=== PATIENT | female | born 1955 | race Caucasian/White ===

== ENCOUNTER 2017-03-20 12:16 | Emergency (ER) | payer MEDICARE, MEDICAID ==
[2017-03-20] MEDS ORDERED: Sodium Chloride 0.9% 10 ML Syringe FLUSH PRN (12:36)
[2017-03-20] MEDS ORDERED: Levalbuterol HCl 1.25 MG/3 ML Neb NEB ONE (12:50)
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
--- NOTE | 2017-03-20 13:25 | CR ---
Chest: Portable view of the chest was obtained. Comparison: Previous chest x-ray of 07/09/16. Previous right mastectomy is noted. Surgical clips are seen within the right side of the chest. Scoliosis present within the spine which is felt to be mostly positional. Heart size and mediastinum are within normal limits for portable technique. Lungs are clear with no acute infiltrates. Impression: 1. Incidental findings. Nothing acute is identified on portable chest x-ray. Diagnostic code #2
[2017-03-20] MEDS ORDERED: LORazepam 2 MG/ML MDV IVPUSH ONE (13:34)
[2017-03-20] MEDS ORDERED: Acetaminophen 325 MG Tab PO ONE (13:34)
[2017-03-20] MEDS ORDERED: Ketorolac 30 MG/ML SDV IVPUSH SCH (13:45)
[2017-03-20] MEDS ORDERED: Sodium Chloride 0.9% 1,000 ML IV SCH (14:00)
[2017-03-20 16:57] VITALS: BP 112/59
== END 2017-03-20 16:50 | disposition home or self-care (01) ==
LOC: JD.ED 12:16
DX: R07.89 Other chest pain (principal); E86.0 Dehydration; E78.00 Pure hypercholesterolemia, unspecified; I11.0 Hypertensive heart disease with heart failure; I50.9 Heart failure, unspecified; K21.9 Gastro-esophageal reflux disease without esophagitis; F41.8 Other specified anxiety disorders; E03.9 Hypothyroidism, unspecified; D64.9 Anemia, unspecified; Z86.73 Personal history of transient ischemic attack (TIA), and cerebral infarction without residual deficits; Z90.710 Acquired absence of both cervix and uterus; Z90.49 Acquired absence of other specified parts of digestive tract; Z98.890 Other specified postprocedural states; Z87.891 Personal history of nicotine dependence; Z79.899 Other long term (current) drug therapy; Z79.82 Long term (current) use of aspirin; Z88.1 Allergy status to other antibiotic agents; Z88.8 Allergy status to other drugs, medicaments and biological substances; Z88.6 Allergy status to analgesic agent; Z88.7 Allergy status to serum and vaccine; Z88.5 Allergy status to narcotic agent
CPT/HCPCS: 36415; 71010; 84484; 93005; 94664; 96361; 96374; 96375; 99285; A9270; J1885; J2060; J7040; J7050; 99284

== ENCOUNTER 2022-01-26 13:13 | Inpatient (IN) | payer MEDICARE, MEDICAID ==
[2022-01-26] MEDS ORDERED: Ibuprofen 800 MG Tab PO ONE (13:42)
[2022-01-26] MEDS ORDERED: Ibuprofen 400 MG Tab ONE (13:59)
[2022-01-26] MEDS ORDERED: ClonazePAM 0.5 MG Tab PO ONE (15:07)
[2022-01-26] MEDS ORDERED: Magnesium Sulfate/Water 2 GM in Premix Bag 1 BAG IV ONE (15:48)
[2022-01-26] MEDS ORDERED: Acetaminophen 325 MG Tab PO ONE (15:53)
[2022-01-26] MEDS ORDERED: Sodium Chloride 0.9% 1,000 ML IV SCH (16:00)
[2022-01-26] MEDS ORDERED: Magnesium Citrate Solution 296 ML Bottle PO PRN (20:13)
[2022-01-26] MEDS ORDERED: Levalbuterol HCl 1.25 MG/3 ML Neb INH PRN (20:38)
[2022-01-26] MEDS: Levothyroxine 25 MCG Tab PO SCH (20:43)
[2022-01-26] MEDS ORDERED: Amantadine 100 MG Cap PO SCH (21:00)
[2022-01-26] MEDS ORDERED: QUEtiapine 25 MG Tab PO SCH ×3 (21:00)
[2022-01-26] MEDS: LORazepam 1 MG Tab PO SCH (21:02)
[2022-01-26] MEDS: Dextrose 5%-0.45% NaCl 1,000 ML IV SCH (21:03)
[2022-01-26] MEDS: Rosuvastatin 10 MG Tab PO SCH (21:03)
[2022-01-26] MEDS: Docusate Sodium 100 MG Cap PO SCH (21:03)
[2022-01-26] MEDS: Gabapentin 600 MG Tab PO SCH (21:04)
[2022-01-26] MEDS: Ibuprofen 400 MG Tab PO SCH (21:05)
[2022-01-26] MEDS: Amantadine 100 MG Cap PO SCH (21:08)
[2022-01-26] MEDS: Acetaminophen 325 MG Tab PO SCH (21:16)
[2022-01-27] MEDS: Dextrose 5%-0.45% NaCl 1,000 ML IV SCH (05:10)
[2022-01-27] MEDS: Levothyroxine 25 MCG Tab PO SCH (06:50)
[2022-01-27] MEDS ORDERED: Omeprazole 20 MG Cap.CR PO SCH (07:00)
[2022-01-27] MEDS: LORazepam 1 MG Tab PO SCH ×4 (08:39→21:47)
[2022-01-27] MEDS: Furosemide 40 MG Tab PO SCH (08:39)
[2022-01-27] MEDS: Losartan 25 MG Tab PO SCH (08:40)
[2022-01-27] MEDS: Gabapentin 600 MG Tab PO SCH ×4 (08:40→21:46)
[2022-01-27] MEDS: Docusate Sodium 100 MG Cap PO SCH ×2 (08:40→21:43)
[2022-01-27] MEDS: Omeprazole 20 MG Cap.CR PO SCH ×2 (08:40→21:47)
[2022-01-27] MEDS: Aspirin 81 MG Tab.EC PO SCH (08:40)
[2022-01-27] MEDS: Amantadine 100 MG Cap PO SCH ×2 (08:40→21:45)
[2022-01-27] MEDS: buPROPion 150 MG Tab.ER PO SCH (08:40)
[2022-01-27] MEDS: Enoxaparin 30 MG/0.3 ML Syringe SUBCUT SCH (08:41)
[2022-01-27] MEDS: QUEtiapine 25 MG Tab PO SCH ×4 (08:47→21:45)
[2022-01-27] MEDS ORDERED: CHOLECALCIFEROL 2000 UNIT PO SCH (09:00)
[2022-01-27] MEDS ORDERED: [UNRECOGNIZED DRUG - OTHER] PO SCH (09:00)
[2022-01-27] MEDS: Furosemide 20 MG Tab PO SCH (12:29)
[2022-01-27] MEDS: busPIRone 5 MG Tab PO SCH (17:20)
[2022-01-27] MEDS: Montelukast 10 MG Tab PO SCH (17:20)
[2022-01-27] MEDS: Acetaminophen 325 MG Tab PO SCH (21:44)
[2022-01-27] MEDS: Rosuvastatin 10 MG Tab PO SCH (21:45)
[2022-01-27] MEDS: Ibuprofen 400 MG Tab PO SCH (21:48)
[2022-01-28] MEDS: Omeprazole 20 MG Cap.CR PO SCH ×3 (06:31→20:23)
[2022-01-28] MEDS: Levothyroxine 25 MCG Tab PO SCH (06:31)
[2022-01-28] MEDS: buPROPion 150 MG Tab.ER PO SCH (08:06)
[2022-01-28] MEDS: Furosemide 40 MG Tab PO SCH (08:07)
[2022-01-28] MEDS: Aspirin 81 MG Tab.EC PO SCH (08:07)
[2022-01-28] MEDS: Docusate Sodium 100 MG Cap PO SCH ×2 (08:07→20:03)
[2022-01-28] MEDS: LORazepam 1 MG Tab PO SCH ×4 (08:07→20:01)
[2022-01-28] MEDS: Amantadine 100 MG Cap PO SCH ×2 (08:07→20:05)
[2022-01-28] MEDS: Gabapentin 600 MG Tab PO SCH ×4 (08:07→20:03)
[2022-01-28] MEDS: Losartan 25 MG Tab PO SCH (08:08)
[2022-01-28] MEDS: Enoxaparin 30 MG/0.3 ML Syringe SUBCUT SCH (08:08)
[2022-01-28] MEDS: QUEtiapine 25 MG Tab PO SCH ×4 (08:16→20:04)
[2022-01-28] MEDS: Potassium Chloride 20 MEQ Tab.ER PO SCH ×2 (10:53→20:04)
[2022-01-28] MEDS: Furosemide 20 MG Tab PO SCH (11:59)
[2022-01-28] MEDS: Montelukast 10 MG Tab PO SCH (17:05)
[2022-01-28] MEDS: busPIRone 5 MG Tab PO SCH (17:06)
[2022-01-28] MEDS: Rosuvastatin 10 MG Tab PO SCH (20:00)
[2022-01-28] MEDS: Acetaminophen 325 MG Tab PO SCH (20:02)
[2022-01-28] MEDS: Ibuprofen 400 MG Tab PO SCH (20:04)
[2022-01-29] MEDS ORDERED: LORazepam 0.5 MG Tab PO ONE (00:02)
[2022-01-29] MEDS: Omeprazole 20 MG Cap.CR PO SCH ×2 (06:21→20:09)
[2022-01-29] MEDS: Levothyroxine 25 MCG Tab PO SCH (06:55)
[2022-01-29] MEDS: buPROPion 150 MG Tab.ER PO SCH (08:44)
[2022-01-29] MEDS: Amantadine 100 MG Cap PO SCH ×2 (08:44→20:07)
[2022-01-29] MEDS: LORazepam 1 MG Tab PO SCH ×4 (08:48→20:08)
[2022-01-29] MEDS: Furosemide 40 MG Tab PO SCH (08:48)
[2022-01-29] MEDS: Aspirin 81 MG Tab.EC PO SCH (08:48)
[2022-01-29] MEDS: Gabapentin 600 MG Tab PO SCH ×4 (08:48→20:08)
[2022-01-29] MEDS: Potassium Chloride 20 MEQ Tab.ER PO SCH (08:48)
[2022-01-29] MEDS: Docusate Sodium 100 MG Cap PO SCH ×2 (08:48→20:07)
[2022-01-29] MEDS: Losartan 25 MG Tab PO SCH (08:51)
[2022-01-29] MEDS: Enoxaparin 30 MG/0.3 ML Syringe SUBCUT SCH (08:52)
[2022-01-29] MEDS ORDERED: cloNIDine 0.1 MG/Day Transdermal Patch TRDERM SCH ×2 (09:00)
[2022-01-29] MEDS ORDERED: Potassium Chloride 20 MEQ Tab.ER PO ONE (09:05)
[2022-01-29] MEDS: QUEtiapine 25 MG Tab PO SCH ×4 (09:09→20:09)
[2022-01-29] MEDS: Ibuprofen 400 MG Tab PO SCH (11:47)
[2022-01-29] MEDS: Furosemide 20 MG Tab PO SCH (11:48)
[2022-01-29] MEDS: Cefdinir 300 MG Cap PO SCH ×2 (13:25→20:07)
[2022-01-29] MEDS: Montelukast 10 MG Tab PO SCH (17:23)
[2022-01-29] MEDS: busPIRone 5 MG Tab PO SCH (19:09)
[2022-01-29] MEDS: Acetaminophen 325 MG Tab PO SCH (20:07)
[2022-01-29] MEDS: Rosuvastatin 10 MG Tab PO SCH (20:08)
[2022-01-30] MEDS ORDERED: Sodium Chloride 0.9% 1,000 ML IV ONE (01:50)
[2022-01-30] MEDS: Omeprazole 20 MG Cap.CR PO SCH ×2 (06:38→20:04)
[2022-01-30] MEDS: Levothyroxine 25 MCG Tab PO SCH (06:38)
[2022-01-30] MEDS: Amantadine 100 MG Cap PO SCH ×2 (09:22→20:04)
[2022-01-30] MEDS: buPROPion 150 MG Tab.ER PO SCH (09:25)
[2022-01-30] MEDS: Aspirin 81 MG Tab.EC PO SCH (09:25)
[2022-01-30] MEDS: Ibuprofen 400 MG Tab PO SCH (09:26)
[2022-01-30] MEDS: Gabapentin 600 MG Tab PO SCH ×4 (09:26→20:04)
[2022-01-30] MEDS: Docusate Sodium 100 MG Cap PO SCH ×2 (09:26→20:04)
[2022-01-30] MEDS: LORazepam 1 MG Tab PO SCH ×4 (09:26→20:04)
[2022-01-30] MEDS: QUEtiapine 25 MG Tab PO SCH ×4 (09:27→20:05)
[2022-01-30] MEDS: Losartan 25 MG Tab PO SCH (09:27)
[2022-01-30] MEDS: Furosemide 40 MG Tab PO SCH (09:27)
[2022-01-30] MEDS: Enoxaparin 30 MG/0.3 ML Syringe SUBCUT SCH (09:28)
[2022-01-30] MEDS: Multivitamin Tab PO SCH (12:14)
[2022-01-30] MEDS: Furosemide 20 MG Tab PO SCH (12:14)
[2022-01-30] MEDS ORDERED: Phenazopyridine 95 MG Tab PO SCH ×2 (15:00→19:00)
[2022-01-30] MEDS: Sulfamethoxazole/Trimethoprim 800-160 MG Tab PO SCH (15:30)
[2022-01-30] MEDS: Montelukast 10 MG Tab PO SCH (17:14)
[2022-01-30] MEDS: busPIRone 5 MG Tab PO SCH (17:16)
[2022-01-30] MEDS: Rosuvastatin 10 MG Tab PO SCH (20:04)
[2022-01-30] MEDS: Acetaminophen 325 MG Tab PO SCH (20:05)
[2022-01-31] MEDS: Omeprazole 20 MG Cap.CR PO SCH ×2 (06:32→21:09)
[2022-01-31] MEDS ORDERED: Levothyroxine 25 MCG Tab PO SCH (07:30)
[2022-01-31] MEDS: Gabapentin 600 MG Tab PO SCH ×4 (08:31→21:10)
[2022-01-31] MEDS: Multivitamin Tab PO SCH (08:31)
[2022-01-31] MEDS: LORazepam 1 MG Tab PO SCH ×4 (08:31→21:11)
[2022-01-31] MEDS: Ibuprofen 400 MG Tab PO SCH (08:31)
[2022-01-31] MEDS: QUEtiapine 25 MG Tab PO SCH ×4 (08:32→21:10)
[2022-01-31] MEDS: Polyethylene Glycol 3350 Powder 17 GM Packet PO PRN (08:33)
[2022-01-31] MEDS: Docusate Sodium 100 MG Cap PO SCH ×2 (08:33→21:10)
[2022-01-31] MEDS: Amantadine 100 MG Cap PO SCH ×2 (08:33→21:12)
[2022-01-31] MEDS: Aspirin 81 MG Tab.EC PO SCH (08:33)
[2022-01-31] MEDS: buPROPion 150 MG Tab.ER PO SCH (08:33)
[2022-01-31] MEDS ORDERED: cloNIDine 0.1 MG/Day Transdermal Patch TRDERM ONE (09:30)
[2022-01-31] MEDS: Sulfamethoxazole/Trimethoprim 800-160 MG Tab PO SCH (13:23)
[2022-01-31] MEDS: Montelukast 10 MG Tab PO SCH (17:00)
[2022-01-31] MEDS: busPIRone 5 MG Tab PO SCH (17:00)
[2022-01-31] MEDS: Acetaminophen 325 MG Tab PO SCH (21:08)
[2022-01-31] MEDS: Rosuvastatin 10 MG Tab PO SCH (21:10)
[2022-02-01] MEDS: Polyethylene Glycol 3350 Powder 17 GM Packet PO PRN (05:47)
[2022-02-01] MEDS: Omeprazole 20 MG Cap.CR PO SCH ×3 (05:47→20:52)
[2022-02-01] MEDS: Levothyroxine 25 MCG Tab PO SCH (06:54)
[2022-02-01] MEDS: Aspirin 81 MG Tab.EC PO SCH (08:32)
[2022-02-01] MEDS: Amantadine 100 MG Cap PO SCH ×2 (08:32→20:50)
[2022-02-01] MEDS: Gabapentin 600 MG Tab PO SCH ×4 (08:32→20:52)
[2022-02-01] MEDS: Multivitamin Tab PO SCH (08:33)
[2022-02-01] MEDS: QUEtiapine 25 MG Tab PO SCH ×4 (08:33→20:52)
[2022-02-01] MEDS: buPROPion 150 MG Tab.ER PO SCH (08:33)
[2022-02-01] MEDS: Docusate Sodium 100 MG Cap PO SCH ×2 (08:33→20:51)
[2022-02-01] MEDS: LORazepam 1 MG Tab PO SCH ×4 (08:34→20:51)
[2022-02-01] MEDS: Ibuprofen 400 MG Tab PO SCH (08:35)
[2022-02-01] MEDS: cloNIDine 0.1 MG/Day Transdermal Patch TRDERM SCH (08:39)
[2022-02-01] MEDS ORDERED: cloNIDine 0.1 MG/Day Transdermal Patch TRDERM SCH (09:00)
[2022-02-01] MEDS: Sulfamethoxazole/Trimethoprim 800-160 MG Tab PO SCH (14:00)
[2022-02-01] MEDS: Montelukast 10 MG Tab PO SCH (17:01)
[2022-02-01] MEDS: Rosuvastatin 10 MG Tab PO SCH (20:50)
[2022-02-01] MEDS: Acetaminophen 325 MG Tab PO SCH (20:51)
[2022-02-02] MEDS: Omeprazole 20 MG Cap.CR PO SCH ×2 (06:46→20:29)
[2022-02-02] MEDS: Levothyroxine 25 MCG Tab PO SCH (07:08)
[2022-02-02] MEDS: Amantadine 100 MG Cap PO SCH ×2 (08:42→20:25)
[2022-02-02] MEDS: buPROPion 150 MG Tab.ER PO SCH (08:42)
[2022-02-02] MEDS: Ibuprofen 400 MG Tab PO SCH (08:45)
[2022-02-02] MEDS: Gabapentin 600 MG Tab PO SCH ×4 (08:45→20:28)
[2022-02-02] MEDS: LORazepam 1 MG Tab PO SCH ×4 (08:46→20:28)
[2022-02-02] MEDS: QUEtiapine 25 MG Tab PO SCH ×4 (08:47→20:28)
[2022-02-02] MEDS: Docusate Sodium 100 MG Cap PO SCH ×2 (08:47→20:29)
[2022-02-02] MEDS: Aspirin 81 MG Tab.EC PO SCH (08:47)
[2022-02-02] MEDS: Multivitamin Tab PO SCH (08:47)
[2022-02-02] MEDS: Polyethylene Glycol 3350 Powder 17 GM Packet PO PRN (08:50)
[2022-02-02] MEDS: Montelukast 10 MG Tab PO SCH (16:41)
[2022-02-02] MEDS: Rosuvastatin 10 MG Tab PO SCH (20:24)
[2022-02-02] MEDS: Acetaminophen 325 MG Tab PO SCH (20:25)
[2022-02-03] MEDS: Omeprazole 20 MG Cap.CR PO SCH ×2 (06:36→21:18)
[2022-02-03] MEDS: Levothyroxine 25 MCG Tab PO SCH (07:31)
[2022-02-03] MEDS ORDERED: Magnesium Hydroxide 400 MG/5 ML Susp 30 ML Cup PO ONE (08:00)
[2022-02-03] MEDS ORDERED: Lidocaine 4% 1 each Patch TOP PRN (08:31)
[2022-02-03] MEDS: Aspirin 81 MG Tab.EC PO SCH (08:52)
[2022-02-03] MEDS: Amantadine 100 MG Cap PO SCH ×2 (08:52→21:16)
[2022-02-03] MEDS: LORazepam 1 MG Tab PO SCH ×4 (08:52→21:17)
[2022-02-03] MEDS: buPROPion 150 MG Tab.ER PO SCH (08:52)
[2022-02-03] MEDS: Gabapentin 600 MG Tab PO SCH ×4 (08:53→21:16)
[2022-02-03] MEDS: Ibuprofen 400 MG Tab PO SCH (08:53)
[2022-02-03] MEDS: QUEtiapine 25 MG Tab PO SCH ×4 (08:56→21:17)
[2022-02-03] MEDS: Multivitamin Tab PO SCH (08:56)
[2022-02-03] MEDS: Docusate Sodium 100 MG Cap PO SCH ×2 (12:35→21:17)
[2022-02-03] MEDS: Montelukast 10 MG Tab PO SCH (16:08)
[2022-02-03] MEDS: Acetaminophen 325 MG Tab PO SCH (21:14)
[2022-02-03] MEDS: Rosuvastatin 10 MG Tab PO SCH (21:17)
[2022-02-04] MEDS: Omeprazole 20 MG Cap.CR PO SCH ×2 (06:28→22:05)
[2022-02-04] MEDS: Levothyroxine 25 MCG Tab PO SCH (06:52)
[2022-02-04] MEDS: QUEtiapine 25 MG Tab PO SCH ×4 (08:21→22:06)
[2022-02-04] MEDS: buPROPion 150 MG Tab.ER PO SCH (08:21)
[2022-02-04] MEDS: Amantadine 100 MG Cap PO SCH ×2 (08:21→22:07)
[2022-02-04] MEDS: LORazepam 1 MG Tab PO SCH ×4 (08:21→22:05)
[2022-02-04] MEDS: Aspirin 81 MG Tab.EC PO SCH (08:21)
[2022-02-04] MEDS: Docusate Sodium 100 MG Cap PO SCH ×2 (08:21→22:06)
[2022-02-04] MEDS: Gabapentin 600 MG Tab PO SCH ×4 (08:22→22:05)
[2022-02-04] MEDS: Ibuprofen 400 MG Tab PO SCH (08:22)
[2022-02-04] MEDS: Multivitamin Tab PO SCH (08:22)
[2022-02-04] MEDS: Lidocaine 4% 1 each Patch TOP PRN (11:05)
[2022-02-04] MEDS: Montelukast 10 MG Tab PO SCH (16:45)
[2022-02-04] MEDS: Acetaminophen 325 MG Tab PO SCH (22:04)
[2022-02-04] MEDS: Rosuvastatin 10 MG Tab PO SCH (22:05)
[2022-02-05] MEDS: Omeprazole 20 MG Cap.CR PO SCH (06:07)
[2022-02-05] MEDS: Levothyroxine 25 MCG Tab PO SCH ×2 (06:07→07:51)
[2022-02-05] MEDS: Lidocaine 4% 1 each Patch TOP PRN (06:11)
[2022-02-05] MEDS: Amantadine 100 MG Cap PO SCH (08:17)
[2022-02-05] MEDS: Docusate Sodium 100 MG Cap PO SCH (08:18)
[2022-02-05] MEDS: Aspirin 81 MG Tab.EC PO SCH (08:18)
[2022-02-05] MEDS: buPROPion 150 MG Tab.ER PO SCH (08:18)
[2022-02-05] MEDS: QUEtiapine 25 MG Tab PO SCH (08:18)
[2022-02-05] MEDS: LORazepam 1 MG Tab PO SCH (08:19)
[2022-02-05] MEDS: Multivitamin Tab PO SCH (08:19)
[2022-02-05] MEDS: Ibuprofen 400 MG Tab PO SCH (08:19)
[2022-02-05] MEDS: Gabapentin 600 MG Tab PO SCH (08:19)
[2022-02-05] MEDS ORDERED: [UNRECOGNIZED DRUG - OTHER] TRDERM SCH (09:30)
[2022-02-05] MEDS: cloNIDine 0.1 MG/Day Transdermal Patch TRDERM SCH (09:58)
[2022-02-05 10:12] VITALS: BP 152/85
[2022-02-05 10:21] VITALS: PULSE 72
== END 2022-02-05 10:38 | DRG 683 ==
LOC: JD.ED 13:13 → JD.MS 15:51 → OBSVTOIN 18:32
PROVIDERS: ADMIT Pediatrics; ATTEND Internal Medicine
DX: S09.90XA Unspecified injury of head, initial encounter (principal); W19.XXXA Unspecified fall, initial encounter; N17.9 Acute kidney failure, unspecified; I13.0 Hypertensive heart and chronic kidney disease with heart failure and stage 1 through stage 4 chronic kidney disease, or unspecified chronic kidney disease; I95.2 Hypotension due to drugs; R25.1 Tremor, unspecified; N18.2 Chronic kidney disease, stage 2 (mild); R29.6 Repeated falls; F80.0 Phonological disorder; I11.0 Hypertensive heart disease with heart failure; E86.0 Dehydration; F43.10 Post-traumatic stress disorder, unspecified; F41.9 Anxiety disorder, unspecified; H53.40 Unspecified visual field defects; I49.3 Ventricular premature depolarization; H91.90 Unspecified hearing loss, unspecified ear; H54.7 Unspecified visual loss; K59.09 Other constipation; E78.00 Pure hypercholesterolemia, unspecified; F95.2 Tourette's disorder; I50.9 Heart failure, unspecified; G35 Multiple sclerosis; J45.909 Unspecified asthma, uncomplicated; F32.A Depression, unspecified; E03.9 Hypothyroidism, unspecified; D64.9 Anemia, unspecified; K21.9 Gastro-esophageal reflux disease without esophagitis; G89.29 Other chronic pain; Z91.09 Other allergy status, other than to drugs and biological substances; Z85.3 Personal history of malignant neoplasm of breast; Z88.1 Allergy status to other antibiotic agents; Z91.040 Latex allergy status; Z88.8 Allergy status to other drugs, medicaments and biological substances; Z88.7 Allergy status to serum and vaccine; Z79.82 Long term (current) use of aspirin; Z79.51 Long term (current) use of inhaled steroids; Z79.890 Hormone replacement therapy; Z79.899 Other long term (current) drug therapy; Z90.710 Acquired absence of both cervix and uterus; Z86.73 Personal history of transient ischemic attack (TIA), and cerebral infarction without residual deficits; Z90.12 Acquired absence of left breast and nipple; Z90.49 Acquired absence of other specified parts of digestive tract; Z91.81 History of falling; Z98.61 Coronary angioplasty status; Z91.048 Other nonmedicinal substance allergy status
CPT/HCPCS: 36415; 70450; 72125; 80053; 83735; 85025; 85610; 99284; A9270 ×3; J7030; 80048; 81001; 83605; 84484; 85379; 85730; 86140; 87086; 87641; 92522-GN; 93005; 97110-GP; 97112-GP; 97116-GP; 97162-GP; 97530-GP; 99232; 99239; 99285; J7042

== ENCOUNTER 2023-05-04 20:17 | Emergency (ER) | payer MEDICARE, MEDICAID ==
[2023-05-04] MEDS ORDERED: Sodium Chloride 0.9% 10 ML Syringe FLUSH PRN (20:31)
[2023-05-04 21:05] LABS: BASOPHILS ABSOLUTE AUTO 0.09 K/mm3 (0.01-0.08); BASOPHILS PERCENT AUTO 1.4 % (0.1-1.2); EOSINOPHILS PERCENT AUTO 4.5 (0.7-5.8); HEMATOCRIT 39.7 % (34.1-44.9); HEMOGLOBIN 13.2 gm/dl (11.2-15.7); IMMATURE GRAN ABSOLUTE AUTO 0.02 K/mm3 (0.00-0.10); IMMATURE GRAN PERCENT AUTO 0.3 % (<=1.0); MEAN CORPUSCULAR HGB CONC 33.2 g/dl (32.2-35.5); MEAN CORPUSCULAR VOLUME 93.2 fl (79.4-94.8); MEAN PLATELET VOLUME 8.6 fl (9.4-12.3); MONOCYTES ABSOLUTE AUTO 0.51 K/mm3 (0.24-0.36); MONOCYTES PERCENT AUTO 7.7 % (4.7-12.5); NEUTROPHILS ABSOLUTE AUTO 3.74 K/mm3 (1.56-6.13); NEUTROPHILS PERCENT AUTO 56.1 % (34.0-71.1); PLATELET COUNT,PLT 229 K/mm3 (182-369); RED BLOOD CELL COUNT 4.26 M/mm3 (3.98-5.22); WHITE BLOOD CELL COUNT,WBC 6.66 K/mm3 (3.98-10.04)
[2023-05-04] MEDS: Nitroglycerin 0.4 MG Tab.SL SL PRN ×3 (21:06→21:37)
[2023-05-04 21:17] VITALS: PULSE 62
[2023-05-04 21:25] LABS: INR 0.94; PROTHROMBIN TIME 10.1 SECONDS (9.7-12.0)
[2023-05-04 21:26] LABS: PTT,PARTIAL THROMBOPLSTIN TIME 26.1 SECONDS (21.7-31.4)
[2023-05-04 21:37] VITALS: BP 175/99
[2023-05-04 21:41] LABS: ALBUMIN 3.5 g/dl (3.4-5.0); ANION GAP 14.1 (5-15); BILIRUBIN TOTAL 0.3 mg/dL (0.2-1.0); BUN/CREATININE RATIO 14.4 (14-18); CALCIUM 8.3 mg/dL (8.5-10.1); CREATININE 0.9 mg/dL (0.55-1.02); EST CRCL DRUG DOSING (CG) 58.18 mL/min; POTASSIUM,K 3.1 mEq/L (3.5-5.1); PROTEIN TOTAL,TP 7.1 g/dl (6.4-8.2)
[2023-05-04] MEDS ORDERED: Potassium Chloride 20 MEQ Tab.ER PO ONE (21:43)
[2023-05-04] MEDS ORDERED: Furosemide 40 MG/4 ML VIAL IVPUSH ONE (21:49)
[2023-05-04] MEDS ORDERED: Ibuprofen 600 MG Tab PO ONE (21:49)
== END 2023-05-04 23:00 | disposition home or self-care (01) ==
LOC: JD.ED 20:17
DX: R07.89 Other chest pain (principal); E87.6 Hypokalemia; R79.1 Abnormal coagulation profile; I11.0 Hypertensive heart disease with heart failure; I50.9 Heart failure, unspecified; E78.00 Pure hypercholesterolemia, unspecified; J45.909 Unspecified asthma, uncomplicated; K21.9 Gastro-esophageal reflux disease without esophagitis; E03.9 Hypothyroidism, unspecified; Z86.16 Personal history of COVID-19; Z91.048 Other nonmedicinal substance allergy status; Z88.8 Allergy status to other drugs, medicaments and biological substances; Z88.5 Allergy status to narcotic agent; Z88.1 Allergy status to other antibiotic agents; Z88.6 Allergy status to analgesic agent; Z91.040 Latex allergy status; Z88.7 Allergy status to serum and vaccine; Z79.899 Other long term (current) drug therapy
CPT/HCPCS: 36415; 71045; 80053; 83735; 83880; 84484; 85025; 85610; 85730; 93005; 96374; 99285; A9270; J1940